=== PATIENT | male | born 1955 | race African-American/Black ===

== ENCOUNTER 2020-04-16 07:48 | Emergency (ER) | payer OTHER ==
[~2020-04-16] VITALS: Ht 177.8 cm; Wt 64.9 kg
[2020-04-16 08:04] VITALS: BP 126/81
== END 2020-04-16 08:36 | disposition home or self-care (01) ==
LOC: ER 07:48
DX: M54.2 Cervicalgia (principal); G89.29 Other chronic pain; M54.9 Dorsalgia, unspecified; Z76.0 Encounter for issue of repeat prescription

== ENCOUNTER 2021-05-14 13:30 | Emergency (ER) | payer OTHER ==
[~2021-05-14] VITALS: Ht 175.3 cm; Wt 61.2 kg
[2021-05-14 13:49] VITALS: BP 125/71
[2021-05-14] MEDS ORDERED: ACETAMINOPHEN 325 MG TAB PO ONE (14:00)
[2021-05-14 15:25] LABS: Urine Bacteria NONE SEEN /hpf (None Seen); Urine Blood 3+ /uL (Negative); Urine Mucus FEW (None Seen); Urine Specific Gravity 1.019 (1.001-1.035); Urine Sperm PRESENT /hpf (None Seen); Urine WBC 630 /hpf (0 - 3); Urine WBC Clumps PRESENT /hpf (None Seen)
== END 2021-05-14 17:54 | disposition home or self-care (01) ==
LOC: ER 13:30 → EDUNIT# 13:30 → ER 17:53
DX: N39.0 Urinary tract infection, site not specified (principal); I10 Essential (primary) hypertension; F17.210 Nicotine dependence, cigarettes, uncomplicated; Z90.49 Acquired absence of other specified parts of digestive tract
CPT/HCPCS: 51702; 81001

== ENCOUNTER 2023-10-04 12:41 | Emergency (ER) | payer OTHER ==
[~2023-10-04] VITALS: Ht 177.8 cm; Wt 60.5 kg
[2023-10-04 13:23] VITALS: BP 131/79; PULSE 73; RESP 17; TEMP 97.9; O2SAT 97
== END 2023-10-04 14:02 | disposition home or self-care (01) ==
LOC: ER 12:41
DX: S91.312A Laceration without foreign body, left foot, initial encounter (principal); I10 Essential (primary) hypertension; F17.210 Nicotine dependence, cigarettes, uncomplicated; W22.8XXA Striking against or struck by other objects, initial encounter; Y93.89 Activity, other specified; Y92.89 Other specified places as the place of occurrence of the external cause; Y99.8 Other external cause status
CPT/HCPCS: 12002; 73620